=== PATIENT | male | born 1950 | race Caucasian/White ===

== ENCOUNTER 2017-04-10 12:52 | Inpatient (IN) | payer MEDICARE ==
[2017-04-10] MEDS ORDERED: LABETALOL 5 MG/ML VIAL MDV IVP STA (13:08)
--- NOTE | 2017-04-10 13:19 | ED ---
General Adult HPI - General Chief complaint: Neuro Symptoms/Deficit Stated complaint: Stroke Symptoms Time Seen by Provider: 04/10/17 13:08 Source: patient, family, RN notes reviewed Mode of arrival: wheelchair Limitations: no limitations - History of Present Illness Initial comments: 66-year-old male with no past medical history presents for evaluation of left leg left arm weakness. Patient is coming by his states that several weeks ago he had some weakness in his left leg that resolved. Last night at approximately 10 PM patient stood from a seated position and had significant weakness in his leg. He did not seek medical evaluation at that time. This morning at approximately 5 AM the patient had again weakness in the left leg, and numbness in his left leg left arm and left face. No facial droop noted. Patient's did state there was a change in his speech, no sulaiman slurring but a change in tone. Patient denies headache. Denies neck pain. Denies chest pain or abdominal pain. He has no pain complaints at all. No nausea vomiting diarrhea. Patient has no known history of hypertension. - Related Data Home Medications Medication Instructions Recorded Confirmed Aspirin EC [Ecotrin] 650 mg PO ONCE PRN 04/10/17 04/10/17 Allergies Allergy/AdvReac Type Severity Reaction Status Date / Time Yeast Allergy Unknown Verified 04/10/17 14:08 Review of Systems ROS Statement: Those systems with pertinent positive or pertinent negative responses have been documented in the HPI. ROS Other: All systems not noted in ROS Statement are negative. Past Medical History Past Medical History: No Reported History History of Any Multi-Drug Resistant Organisms: None Reported Past Surgical History: No Surgical Hx Reported Past Psychological History: No Psychological Hx Reported Smoking Status: Former smoker Past Alcohol Use History: None Reported Past Drug Use History: None Reported General Exam Limitations: no limitations General appearance: alert, in no apparent distress Head exam: Present: atraumatic, normocephalic Eye exam: Present: normal appearance, PERRL, EOMI ENT exam: Present: normal exam Neck exam: Present: normal inspection. Absent: tenderness, meningismus Respiratory exam: Present: normal lung sounds bilaterally. Absent: respiratory distress Cardiovascular Exam: Present: regular rate, normal rhythm GI/Abdominal exam: Present: soft. Absent: distended, tenderness Extremities exam: Present: normal inspection, normal capillary refill, other ( Drift in left upper and left lower extremity). Absent: pedal edema Neurological exam: Present: alert, oriented X3, CN II-XII intact, motor sensory deficit (Patient has numbness in the left upper, left lower extremity and left face. Left left arm and left leg. No facial droop) Psychiatric exam: Present: normal affect, normal mood Skin exam: Present: warm, dry, intact. Absent: cyanosis, diaphoretic Course Vital Signs 04/10/17 04/10/17 04/10/17 12:55 13:30 14:20 Temperature 98.8 F Pulse Rate 86 75 Respiratory 18 18 18 Rate Blood Pressure 257/121 207/71 190/110 O2 Sat by Pulse 98 97 Oximetry - Reevaluation(s) Reevaluation #1: 04/10/17 14:35 On reevaluation, patient's blood pressures improved 190 systolic. Patient has an unchanged neurologic examination. EKG Findings - EKG Comments: EKG Findings:: EKG shows sinus rhythm with first-degree AV block, there is T- wave inversion in V5 V6, no ST segment elevation [place] interval 2:30, QRS duration 86, QTC 439 Medical Decision Making - Medical Decision Making 66-year-old male with no significant past medical history presents for evaluation of left-sided weakness and hypertension. Patient is outside the window for TPA. His symptoms have been present for the past several weeks, they have come and gone. Most recently returned last night. Patient is not on any medication. He does not have a known history of hypertension. Initial evaluation patient is a blood pressure 260/120. He does receive IV labetalol. Head CT is obtained, and negative for intracranial hemorrhage or stroke. Laboratory studies including CBC, CMP, cardiac enzymes are unremarkable. EKG does show T-wave inversion in V5 and V6. Patient has no chest pain. Patient's blood pressure does improve, he requires additional 10 mg of hydralazine for goal blood pressure of 190-200 systolic 90-100 diastolic. Patient is started on Norvasc. He is given an aspirin MRSA department. He will be admitted for further stroke workup. - Lab Data Result diagrams: 04/10/17 13:12 04/10/17 13:12 Lab Results 04/10/17 04/10/17 04/10/17 Range/Units 13:12 13:12 13:12 WBC 8.6 (3.8-10.6) k/uL RBC 5.17 (4.30-5.90) m/uL Hgb 16.4 (13.0-17.5) gm/dL Hct 48.4 (39.0-53.0) % MCV 93.6 (80.0-100.0) fL MCH 31.6 (25.0-35.0) pg MCHC 33.8 (31.0-37.0) g/dL RDW 13.3 (11.5-15.5) % Plt Count 246 (150-450) k/uL Neutrophils % 73 % Lymphocytes % 18 % Monocytes % 5 % Eosinophils % 2 % Basophils % 1 % Neutrophils # 6.3 (1.3-7.7) k/uL Lymphocytes # 1.6 (1.0-4.8) k/uL Monocytes # 0.4 (0-1.0) k/uL Eosinophils # 0.1 (0-0.7) k/uL Basophils # 0.1 (0-0.2) k/uL PT (9.0-12.0) sec INR (<1.2) APTT (22.0-30.0) sec Sodium 142 (137-145) mmol/L Potassium 4.4 (3.5-5.1) mmol/L Chloride 108 H (98-107) mmol/L Carbon Dioxide 19 L (22-30) mmol/L Anion Gap 15 mmol/L BUN 15 (9-20) mg/dL Creatinine 0.91 (0.66-1.25) mg/dL Est GFR (MDRD) Af Amer >60 (>60 ml/min/1.73 sqM) Est GFR (MDRD) Non-Af >60 (>60 ml/min/1.73 sqM) Glucose 113 H (74-99) mg/dL Calcium 9.6 (8.4-10.2) mg/dL Total Bilirubin 0.7 (0.2-1.3) mg/dL AST 31 (17-59) U/L ALT 51 (21-72) U/L Alkaline Phosphatase 68 (38-126) U/L Total Creatine Kinase 253 H (55-170) U/L CK-MB (CK-2) 4.2 H* (0.0-2.4) ng/mL CK-MB (CK-2) Rel Index 1.7 Troponin I <0.012 (0.000-0.034) ng/mL Total Protein 8.3 H (6.3-8.2) g/dL Albumin 4.7 (3.5-5.0) g/dL 04/10/17 Range/Units 13:12 WBC (3.8-10.6) k/uL RBC (4.30-5.90) m/uL Hgb (13.0-17.5) gm/dL Hct (39.0-53.0) % MCV (80.0-100.0) fL MCH (25.0-35.0) pg MCHC (31.0-37.0) g/dL RDW (11.5-15.5) % Plt Count (150-450) k/uL Neutrophils % % Lymphocytes % % Monocytes % % Eosinophils % % Basophils % % Neutrophils # (1.3-7.7) k/uL Lymphocytes # (1.0-4.8) k/uL Monocytes # (0-1.0) k/uL Eosinophils # (0-0.7) k/uL Basophils # (0-0.2) k/uL PT 10.2 (9.0-12.0) sec INR 1.0 (<1.2) APTT 21.9 L (22.0-30.0) sec Sodium (137-145) mmol/L Potassium (3.5-5.1) mmol/L Chloride (98-107) mmol/L Carbon Dioxide (22-30) mmol/L Anion Gap mmol/L BUN (9-20) mg/dL Creatinine (0.66-1.25) mg/dL Est GFR (MDRD) Af Amer (>60 ml/min/1.73 sqM) Est GFR (MDRD) Non-Af (>60 ml/min/1.73 sqM) Glucose (74-99) mg/dL Calcium (8.4-10.2) mg/dL Total Bilirubin (0.2-1.3) mg/dL AST (17-59) U/L ALT (21-72) U/L Alkaline Phosphatase (38-126) U/L Total Creatine Kinase (55-170) U/L CK-MB (CK-2) (0.0-2.4) ng/mL CK-MB (CK-2) Rel Index Troponin I (0.000-0.034) ng/mL Total Protein (6.3-8.2) g/dL Albumin (3.5-5.0) g/dL Critical Care Time Critical Care Time: Yes Total Critical Care Time: 35 Disposition Clinical Impression: Cerebrovascular accident Disposition: ADMITTED IP TO THIS [facility] Condition: Stable Referrals: None,Stated [Primary Care Provider] - 1-2 days Decision to Admit Reason: Admit from EC Decision Date: 04/10/17 Decision Time: 14:39
[2017-04-10 13:23] LABS: Basophils # (A) 0.1 k/uL (0-0.2); Basophils % (A) 1 %; CH 30.9; CHCM 33.2; Eosinophils # (A) 0.1 k/uL (0-0.7); Eosinophils % (A) 2 %; HCT 48.4 % (39.0-53.0); HDW 2.64; HGB 16.4 gm/dL (13.0-17.5); Luc # (Auto) 0.13; Luc % (Auto) 2; Lymphocytes # (A) 1.6 k/uL (1.0-4.8); Lymphocytes % (A) 18 %; MCH 31.6 pg (25.0-35.0); MCHC 33.8 g/dL (31.0-37.0); MCV 93.6 fL (80.0-100.0); Mean Platelet Volume 7.2; Monocytes # (A) 0.4 k/uL (0-1.0); Monocytes % (A) 5 %; Neutrophils # (A) 6.3 k/uL (1.3-7.7); Neutrophils % (A) 73 %; RBC 5.17 m/uL (4.30-5.90); RDW 13.3 % (11.5-15.5); WBC 8.6 k/uL (3.8-10.6)
[2017-04-10 13:31] LABS: ALT 51 U/L (21-72); AST 31 U/L (17-59); Alkaline Phosphatase 68 U/L (38-126); Anion Gap 15 mmol/L; Blood Urea Nitrogen 15 mg/dL (9-20); Calcium 9.6 mg/dL (8.4-10.2); Carbon Dioxide 19 mmol/L (22-30); Chloride 108 mmol/L (98-107); Glucose 113 mg/dL (74-99); Non-African American GFR(MDRD) >60 (>60 ml/min/1.73 sqM); Potassium 4.4 mmol/L (3.5-5.1); Sodium 142 mmol/L (137-145); Total Bilirubin 0.7 mg/dL (0.2-1.3); Total Protein 8.3 g/dL (6.3-8.2)
[2017-04-10 13:38] LABS: Partial Thromboplastin Time 21.9 sec (22.0-30.0); Prothrombin Time 10.2 sec (9.0-12.0)
[2017-04-10 13:47] LABS: Creatine Kinase 253 U/L (55-170)
[2017-04-10 13:59] LABS: Troponin I <0.012 ng/mL (0.000-0.034)
[2017-04-10 14:01] LABS: Creatine Kinase MB 4.2 ng/mL (0.0-2.4)
--- NOTE | 2017-04-10 14:08 | XR ---
EXAMINATION TYPE: XR chest 2V DATE OF EXAM: 04/10/2017 HISTORY: altered mental status. REFERENCE: NONE. FINDINGS: Lung volumes are mildly prominent. The heart is mildly enlarged. The lungs are clear. Pleur al spaces are clear. IMPRESSION: 1. MILD CARDIOMEGALY. 2. CORRELATE FOR COPD.
--- NOTE | 2017-04-10 14:08 | CT ---
EXAMINATION TYPE: CT brain wo con for TPA DATE OF EXAM: 04/10/2017 COMPARISON: NONE HISTORY: Left sided body weakness and facial numbness CT DLP: 1260 mGycm Automated exposure control for dose reduction was used. FINDINGS: There are mild, generalized changes of sulcal prominence and ventricular megaly, compatible with atro phic change. There is diffuse periventricular white matter lucency, compatible with chronic white mat ter ischemic change. There is no acute focal lesion, mass effect or midline shift identified. I do no t see evidence of intracranial blood. The orbits appear normal. Visualized portions of the paranasal sinuses and mastoids are clear. No depressed skull fracture is s een. IMPRESSION: 1. NO ACUTE INTRACRANIAL ABNORMALITY. 2. MILD DEGENERATIVE CHANGE.
[2017-04-10] MEDS ORDERED: amLODIPine 5 MG TAB PO STA (14:34)
[2017-04-10] MEDS ORDERED: hydrALAZINE HCL 20 MG/ML 1 ML VIAL IVP STA (14:34)
[2017-04-10] MEDS ORDERED: ASPIRIN 325 MG TAB PO STA (14:39)
[2017-04-10] MEDS ORDERED: SODIUM CHLORIDE 0.9% 1,000 ML IV ONE (15:32)
[2017-04-10] MEDS: SODIUM CHLORIDE 0.9% 1,000 ML IV SCH (15:56)
[2017-04-10 17:44] LABS: Appearance,Urine Clear (Clear); Bilirubin,Urine Negative (Negative); Glucose,Urine (UA) Negative (Negative); Ketones,Urine Negative (Negative); Leukocyte Esterase,Urine Negative (Negative); Nitrite,Urine Negative (Negative); Protein,Urine Negative (Negative); Specific Gravity,Urine 1.014 (1.001-1.035); UA Billing (MACRO vs. MICRO) CHEM; Urobilinogen,Urine <2.0 mg/dL (<2.0)
[2017-04-10 18:33] VITALS: BMI 35.6
[2017-04-10] MEDS: HEPARIN SODIUM,PORCINE 5,000 UNIT/ML 1 ML VIAL SQ SCH (20:50)
[2017-04-11] MEDS ORDERED: ACETAMINOPHEN TAB 325 MG TAB PO PRN (00:11)
[2017-04-11] MEDS: SODIUM CHLORIDE 0.9% 1,000 ML IV SCH ×2 (03:23→08:32)
--- NOTE | 2017-04-11 06:14 | P.CNNES ---
History of Present Illness Consult date: 04/10/17 Reason for Consult: Patient being evaluated for acute left-sided weakness and acute stroke. 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 Tuesday night the patient noticed that he was having difficulty with the symptoms of left-sided weakness involving the arm and leg. Apparently when he was using his hand he just had no control with the hand making it hard to hold things with his left hand. He was also noticing when he was walking that he has a limp on his left side. The patient lives in [place] near [place] and apparently has been onto her at various churches. He decided to go to spiritism this morning as scheduled. He was able to complete his sermon and apparently his noticed that he was having greater difficulty with his left side. He did not manifest any evidence of aphasia. Most of his symptoms involved the use of his left hand with weakness and dysmetria. The patient states he has not been to a physician in over 20 years. He states he has been in fairly good health all these years and is the first hospitalization for him for very specific treatment. Patient denies any previous history of TIA or stroke. His who accompanies him today states that he was having difficulty holding things with his left hand. He was hobbling at spiritism according to the . He was able to stand for at least an hour to finish his sermon. She did notice earlier today that he also seemed to have left facial droop. For these reasons he was brought into the emergency room for further evaluation. He was seen in the ER by Dr. Paiz who evaluated him for possibility of acute stroke. He was sent for a computed tomography scan of the brain as well as a CTA of the brain and neck. CAT scan of the brain was negative for any evidence of acute stroke or hemorrhage. He did have evidence of hypertensive urgency in the ER with blood pressure readings of 250/120. He was given IV labetalol. He was outside of the window for TPA as his symptoms started Tuesday night at about 10 PM. He did undergo an EKG in the emergency room which did show T-wave inversion in V5 and V6. He complained of no chest pain. Patient was started on Norvasc and admitted to the hospital. According to the who provided the medical history he has been in good health all these years but is noted has not seen a physician for over 20 years. The patient was examined on [facility] care floor this evening. His speech is clear with no evidence of any aphasia. He does have evidence of left-sided hemiparesis with some dysmetria with finger-nose testing with the left hand. We have recommended a complete stroke evaluation for the patient. His overall prognosis at this time remains guarded. The patient is now admitted and neurology has been consulted for further evaluation and recommendations. Review of Systems Constitutional: Denies chills, Denies fever Eyes: denies blurred vision, denies pain Ears, nose, mouth and throat: Denies headache, Denies sore throat Cardiovascular: Denies chest pain, Denies shortness of breath Respiratory: Denies cough Gastrointestinal: Denies abdominal pain, Denies diarrhea, Denies nausea, Denies vomiting Musculoskeletal: Denies myalgias Integumentary: Denies pruritus, Denies rash Neurological: Reports balance difficulties, Reports confusion, Reports gait dysfunction, Reports lack of coordination, Reports motor disturbance, Reports paresthesias, Reports sensory deficit, Denies numbness, Denies weakness Psychiatric: Denies anxiety, Denies depression Endocrine: Denies fatigue, Denies weight change Past Medical History Past Medical History: No Reported History History of Any Multi-Drug Resistant Organisms: None Reported Past Surgical History: No Surgical Hx Reported Past Psychological History: No Psychological Hx Reported Smoking Status: Former smoker Past Alcohol Use History: None Reported Past Drug Use History: None Reported - Past Family History Father Family Medical History: CVA/TIA, Hypertension, Myocardial Infarction (NH) Mother Family Medical History: Myocardial Infarction (NH) Medications and Allergies Home Medications Medication Instructions Recorded Confirmed Type Aspirin EC [Ecotrin] 650 mg PO ONCE PRN 04/10/17 04/10/17 History Allergies Allergy/AdvReac Type Severity Reaction Status Date / Time Yeast Allergy Unknown Verified 04/10/17 14:08 Physical Examination - Vital Signs Vital Signs: Vital Signs Temp Pulse Pulse Resp BP BP Pulse Ox 04/10/17 20:00 97.1 F L 96 16 188/87 93 L 04/10/17 18:45 97 04/10/17 18:27 94 17 190/89 93 L 04/10/17 17:39 98.2 F 91 18 201/93 98 04/10/17 16:39 98 20 185/81 98 04/10/17 16:00 76 18 135/60 04/10/17 15:39 128/58 04/10/17 15:00 73 18 209/94 04/10/17 14:20 18 190/110 04/10/17 13:30 75 18 207/71 97 04/10/17 12:55 98.8 F 86 18 257/121 98 Intake and Output 04/10/17 04/10/17 04/10/17 06:59 14:59 22:59 Intake Total 100 Balance 100 Intake: Intake, IV Titration 100 Amount Sodium Chloride 0.9% 1, 100 000 ml @ 100 mls/hr IV . Q10H [facility] Rx#:[id number] Other: Voiding Method Toilet # Voids 1 Weight 112.491 kg 112.49 kg Patient Weight 04/11/17 06:59 Weight 112.49 kg - Constitutional General appearance: average body habitus, cooperative - EENT EENT: PERRL, mucous membranes moist - Respiratory Respiratory: lungs clear, normal breath sounds - Cardiovascular Cardiovascular: regular rate, normal S1, normal S2 Extremities: no peripheral edema bilaterally - Gastrointestinal Gastrointestinal: normoactive bowel sounds - Integumentary Integumentary: normal - Neurologic Cranial nerve examination: PERRL, EOMI, VFF, V1/V2/V3 grossly intact, tongue midline, intact gag reflex, intact corneal reflex, facial droop (Patient has a left upper motor neuron facial weakness.), normal palatal elevation Speech examination: intact Sensorimotor examination: intact Motor examination - right side: 5/5: biceps, triceps, wrist flexion, wrist extension, toy maker, hip flexors, knee extensors, dorsiflexion, toe extension (EHL) , plantarflexion Motor examination - left side: 3/5: biceps, triceps, wrist flexion, wrist extension, toy maker, hip flexors, knee extensors, dorsiflexion, toe extension (EHL) , plantarflexion Detailed sensory examination: intact Reflex and gait examination: intact Reflexes: 1+: ankle, bicep, knee, tricep Cerebellar examination: ataxia, dysmetria - Musculoskeletal Musculoskeletal: no pain - Psychiatric Psychiatric: mood/affect appropriate, cooperative Results - Laboratory Findings CBC and BMP: 04/10/17 13:12 04/10/17 13:12 Abnormal Lab Findings: Abnormal Labs 04/10/17 04/10/17 04/10/17 13:12 13:12 13:12 APTT 21.9 L Chloride 108 H Carbon Dioxide 19 L Glucose 113 H Total Creatine Kinase 253 H CK-MB (CK-2) 4.2 H* Total Protein 8.3 H Assessment and Plan (1) Acute right arterial ischemic stroke, MCA (middle cerebral artery) Status: Acute Code(s): I63.511 - CEREB INFRC D/T UNSP OCCLS OR STENOS OF RIGHT MID CEREB ART (2) Thrombotic stroke involving right cerebellar artery Status: Acute Code(s): I63.341 - CEREBRAL INFRC DUE TO THROMBOSIS OF RIGHT CEREBLR ARTERY (3) Hypertensive urgency Status: Acute Code(s): I16.0 - HYPERTENSIVE URGENCY (4) First degree AV block Status: Acute Code(s): I44.0 - ATRIOVENTRICULAR BLOCK, FIRST DEGREE Plan: This patient is a 66-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 Patient lives in the [facility] and has been in [place] for the past 1 month doing [employer] work. He has been to spiritism is throughout the [facility]. Patient on Tuesday night developed sudden onset of left-sided weakness involving his arm and leg. 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 He was able to complete his sermon earlier today but then his convinced him to come to the emergency room for further evaluation. Patient was seen in the ER by Dr. Paiz and he was sent for computed tomography scan and CTA angiogram of the head and neck. CT of the brain was negative for acute stroke or hemorrhage. CTA was also negative for any evidence of vascular occlusion. Patient was not a candidate for TPA as his symptoms started yesterday evening at 10 PM. He was admitted to the hospital for a complete stroke evaluation. Neurological examination reveals evidence of left-sided weakness suggesting acute right MCA stroke. He also shows evidence of dysmetria on finger-nose testing using the left arm. We would also include in the differential diagnosis possibility of cerebellar stroke. Patient will be placed on aspirin daily for secondary stroke prevention. We have recommended a complete stroke evaluation including MRI of the brain to be done tomorrow morning. He will require close monitoring of his blood pressure. His overall prognosis at this time remains guarded. We will continue close neurological follow this patient during this admission. Time with Patient: Greater than 30
[2017-04-11 06:28] LABS: Basophils % (A) 0 %; CH 30.9; CHCM 32.5; Eosinophils # (A) 0.1 k/uL (0-0.7); Eosinophils % (A) 1 %; HCT 48.2 % (39.0-53.0); HDW 2.58; HGB 15.2 gm/dL (13.0-17.5); Luc # (Auto) 0.13; Luc % (Auto) 2; Lymphocytes # (A) 1.8 k/uL (1.0-4.8); Lymphocytes % (A) 21 %; MCH 30.1 pg (25.0-35.0); MCHC 31.4 g/dL (31.0-37.0); MCV 95.6 fL (80.0-100.0); Mean Platelet Volume 6.9; Monocytes # (A) 0.5 k/uL (0-1.0); Monocytes % (A) 6 %; Neutrophils # (A) 5.9 k/uL (1.3-7.7); Neutrophils % (A) 70 %; RBC 5.04 m/uL (4.30-5.90); RDW 13.7 % (11.5-15.5); WBC 8.4 k/uL (3.8-10.6); WBC (Perox) 8.58
[2017-04-11] MEDS: PANTOPRAZOLE 40 MG TABLET PO SCH (06:38)
[2017-04-11 06:52] LABS: Calcium 8.9 mg/dL (8.4-10.2); Chloride 107 mmol/L (98-107); Cholesterol 239 mg/dL (<200); HDL Cholesterol 41 mg/dL (40-60); Potassium 4.4 mmol/L (3.5-5.1); Sodium 138 mmol/L (137-145)
[2017-04-11 07:21] LABS: Anion Gap 10 mmol/L; Blood Urea Nitrogen 12 mg/dL (9-20); Carbon Dioxide 21 mmol/L (22-30); Creatine Kinase 221 U/L (55-170); Glucose 106 mg/dL (74-99); Non-African American GFR(MDRD) >60 (>60 ml/min/1.73 sqM)
[2017-04-11] MEDS: ASPIRIN 325 MG TAB PO SCH (08:32)
[2017-04-11] MEDS: ATORVASTATIN 40 MG TAB PO SCH (08:32)
[2017-04-11] MEDS: HEPARIN SODIUM,PORCINE 5,000 UNIT/ML 1 ML VIAL SQ SCH ×2 (08:32→20:29)
[2017-04-11] MEDS ORDERED: amLODIPine 5 MG TAB PO SCH (09:00)
--- NOTE | 2017-04-11 09:15 | HP ---
HISTORY AND PHYSICAL DATE OF SERVICE: 04/10/2017. CHIEF COMPLAINT: Weakness of the left side of the body and difficulty in walking. HISTORY OF PRESENT ILLNESS: This 66-year-old gentleman with a past medical history of no medical problems except for previous smoking, being followed by no primary care physician in the outpatient setting, was noted to have weakness of the left arm with some numbness yesterday evening. The patient also noted some weakness of the left leg several weeks ago,which subsided. Last night progressively the weakness worsened and also involved the left upper limb. By 5 a.m. this morning the patient developed weakness in the left upper extremity. Accordingly, the patient came to [facility] and was admitted for evaluation and treatment. Initial CT scan did not show any acute abnormality. The patient's blood pressure was elevated up to 257 on admission but after getting medications the patient developed hypotension as well. Patient responded to bolus fluids. The patient was admitted for further evaluation and treatment. There is no history of fever. No history of headache, loss conscious, seizures. PAST MEDICAL HISTORY: No significant cardiovascular illness. MEDICATIONS: Aspirin 650 once. ALLERGIES: Yeast. FAMILY HISTORY: History of CVA and TIA in multiple members, hypertension, myocardial infarction. SOCIAL HISTORY: Previous history of smoking. No alcohol intake. REVIEW OF SYSTEMS: ENT: No diminished hearing or vision. CARDIOVASCULAR: No angina. RESPIRATORY: No cough or hemoptysis. GI: No nausea or vomiting. : No dysuria. NERVOUS SYSTEM: As mentioned earlier. ALLERGIES: No allergies or hayfever. MUSCULOSKELETAL: As mentioned earlier. HEMATOLOGY/ONCOLOGY: No anemia. ENDOCRINE: No history of diabetes or hypothyroidism. CONSTITUTIONAL: None. DERMATOLOGY: None. PSYCHIATRY: As mentioned. PHYSICAL EXAMINATION: Alert oriented x3. Pulse is 96, blood pressure 188/87, heart rate 16, temperature 97.9, pulse ox 98% room air. HEENT: Conjunctivae normal. Oral mucosa moist. NECK: No jugular venous distention. No thyroid enlargement. CARDIOVASCULAR: S1 and S2. LUNGS: Breath sounds diminished in the bases. No rhonchi. No crackles. ABDOMEN: Soft, nontender. No mass palpable. LEGS: No edema. No swelling. NERVOUS SYSTEM: Higher functions as mentioned. Cranial nerves 2 through 12 grossly intact. No nystagmus or diplopia. Otherwise minimal weakness of the left upper and lower limbs noted and also significant incoordination of the left upper limb and left lower limb also noted. Gait is ataxic. Skin no ulcer. LYMPHATICS: No lymph nodes palpable. JOINTS: No active deformity or arthropathy. LABS: CBC within normal limits. APTT 21.9. CO2 is 19. Glucose 113. Creatinine kinase 253. Total protein is 8.3. UA is unremarkable. ASSESSMENT: 1. Acute left-sided stroke. Rule out cerebellar stroke or posterior circulation stroke as well. 2. Hypertension and hypertensive urgency. 3. Remote history of nicotine dependence. 4. Increased random blood sugar. 5. Increased creatine kinase. RECOMMENDATIONS AND DISCUSSION: In this 66-year-old gentleman who presented with multiple complex medical conditions, we will monitor the patient closely. Continue the current management. We will initiate aspirin. Norvasc has been initiated. I would recommend permissive hypertension. Because of the concerns of stroke, Neurology will be consulted. Proton pump inhibitors and DVT prophylaxis. Full neurovascular work up including carotid Doppler and 2D echo. Also recommend MRI with contrast also to rule out the possibility of posterior circulation stroke as well. Lipid panel will be checked. Prognosis is guarded, which I discussed at length with the patient and family understands and agrees. Further recommendations to follow. I would also recommend the patient to follow up closely with primary physician in the outpatient setting. The patient understands and agrees. Once again, the prognosis is extremely guarded because of the multiple complex medical issues detailed above. MMODL / IJN: [id number] /
--- NOTE | 2017-04-11 10:29 | US ---
EXAMINATION TYPE: US carotid duplex BILAT DATE OF EXAM: 04/11/2017 COMPARISON: NONE CLINICAL HISTORY: Stenosis. Stenosis EXAM MEASUREMENTS: RIGHT: Peak Systolic Velocity (PSV) cm/sec ----- Right CCA: 109.4 ----- Right ICA: 140.0 ----- Right ECA: 220.4 ICA/CCA ratio: 1.3 RIGHT: End Diastole cm/sec ----- Right CCA: 18.4 ----- Right ICA: 38.2 ----- Right ECA: 0.0 LEFT: Peak Systolic Velocity (PSV) cm/sec ----- Left CCA: 125.4 ----- Left ICA: 156.9 ----- Left ECA: 154.0 ICA/CCA ratio: 1.3 LEFT: End Diastole cm/sec ----- Left CCA: 18.9 ----- Left ICA: 24.8 ----- Left ECA: 9.6 VERTEBRALS (direction of flow): Right Vertebral: Antegrade Left Vertebral: Antegrade Rhythm: Normal Bilateral intimal thickening, plaque bilateral bulb and CCA, elevated velocities: right mid ICA, righ t distal ICA, right mid ECA, left bulb and left mid ECA, no significant stenosis. IMPRESSION: 1. intimal thickening in bilateral plaque formation with no significant hemodynamic stenosis.
--- NOTE | 2017-04-11 11:00 | MR ---
"EXAMINATION TYPE: MR brain wo con DATE OF EXAM: 04/11/2017 COMPARISON: CT brain 04/10/2017 HISTORY: CVA T1-weighted sagittal, T2, FLAIR, and diffusion axial, and T2 coronal coronal views of the brain are s ubmitted. There is abnormal signal on diffusion imaging within the right thalamus measuring 1.2 cm compatible w ith acute ischemia. No midline shift. Exam somewhat limited by motion artifact. Changes of chronic si nusitis noted. Numerous areas of abnormal signal seen scattered throughout the white matter bilateral ly which are nonspecific but most typical remote microvascular ischemia. [id number] generalized degenerative change. Craniocervical junction maintained. Sella turcica has a normal appearance. No cerebellopontine angle mass. IMPRESSION: 1. Area of acute ischemia measuring 1.2 cm within the right thalamus with no midline shift. Report ca lled to the patient's nurse. A Red message has been communicated to Dhaval Gonzalez via the [employer] | Critical Result system o n 04/11/2017 10:56 AM, Message ID [id number]."
--- NOTE | 2017-04-11 14:47 | P.CRDCN ---
History of Present Illness Consult date: 04/11/17 Requesting physician: Dhaval Gonzalez Reason for Consult (text): hypertension Chief complaint: left sided weakness History of present illness: This is a pleasant 66-year-old gentleman who is visiting here from [facility], has no past medical history however has not been seen by a physician in over 30 years. Likely has a history of untreated hypertension as he had his blood pressure checked at one point many years ago and it was quite high however he never saw sought medical attention. He presented to the emergency department after having recurrent episodes of left-sided weakness and numbness. Upon arrival to the emergency department, his blood pressure was elevated at 257/121. CT of the brain showed no acute intracranial abnormality and mild degenerative change. Chest x-ray showed mild cardiomegaly and correlate for COPD. Neurology has been consulted on this patient. Patient underwent carotid Doppler study and an MRI of the brain. Carotid Doppler showed intimal thickening in bilateral plaque formation with no significant hemodynamic stenosis. MRI of the brain showed area of acute ischemia measuring 1.2 cm within the right thalamus with no midline shift. Echocardiogram is pending. Cardiology was asked to see the patient in consultation due to hypertension. Patient's blood pressure spiked up to 215/100. He is currently on Norvasc 5 mg by mouth daily. Upon examination, patient is resting comfortably in bed with family at the bedside. He has no shortness of breath, chest discomfort, dizziness or headache. His left-sided numbness has resolved and he has minimal residual left-sided weakness. Past Medical History Past Medical History: No Reported History History of Any Multi-Drug Resistant Organisms: None Reported Past Surgical History: No Surgical Hx Reported Past Psychological History: No Psychological Hx Reported Smoking Status: Former smoker Past Alcohol Use History: None Reported Past Drug Use History: None Reported - Past Family History Father Family Medical History: CVA/TIA, Hypertension, Myocardial Infarction ([place]) Mother Family Medical History: Myocardial Infarction ([place]) Medications and Allergies Home Medications Medication Instructions Recorded Confirmed Type Aspirin EC [Ecotrin] 650 mg PO ONCE PRN 04/10/17 04/10/17 History Allergies Allergy/AdvReac Type Severity Reaction Status Date / Time Yeast Allergy Unknown Verified 04/10/17 14:08 Physical Exam Vitals: Vital Signs Temp Pulse Pulse Resp BP BP Pulse Ox 04/11/17 14:15 191/87 04/11/17 13:39 88 04/11/17 12:00 96 230/104 96 04/11/17 11:39 90 04/11/17 09:39 88 04/11/17 08:00 97.9 F 83 215/98 94 L 04/11/17 07:39 81 04/11/17 07:09 97 04/11/17 04:00 97.5 F L 87 17 182/85 94 L 04/11/17 00:00 97.9 F 86 16 188/88 92 L 04/10/17 20:00 97.1 F L 96 16 188/87 93 L 04/10/17 18:45 97 04/10/17 18:27 94 17 190/89 93 L 04/10/17 17:39 98.2 F 91 18 201/93 98 04/10/17 16:39 98 20 185/81 98 04/10/17 16:00 76 18 135/60 04/10/17 15:39 128/58 04/10/17 15:00 73 18 209/94 Intake and Output 04/10/17 04/11/17 04/11/17 22:59 06:59 14:59 Intake Total 100 1000 840 Balance 100 1000 840 Intake: IV 1000 Sodium Chloride 0.9% 1, 1000 000 ml @ 100 mls/hr IV . Q10H ED Rx#:[id number] Intake, IV Titration 100 600 Amount Sodium Chloride 0.9% 1, 100 600 000 ml @ 100 mls/hr IV . Q10H ED Rx#:[id number] Oral 240 Other: Voiding Method Toilet Toilet # Voids 1 3 Weight 112.49 kg 110.5 kg PHYSICAL EXAMINATION: HEENT: Head is atraumatic, normocephalic. Pupils equal, round. Neck is supple. There is no elevated jugular venous pressure. HEART EXAMINATION: Heart sounds regular, S1 and S2 normal with a soft systolic murmur. CHEST EXAMINATION: Lungs are clear to auscultation and precussion. No chest wall tenderness is noted on palpation or with deep breathing. ABDOMEN: Soft, nontender. Bowel sounds are heard. No organomegaly noted. EXTREMITIES: 2+ peripheral pulses with no evidence of peripheral edema and no calf tenderness noted. Minimal left-sided weakness noted. NEUROLOGIC patient is awake, alert and oriented x3. . Results 04/11/17 06:06 04/11/17 06:02 Lipids 04/11/17 Range/Units 06:02 Triglycerides 135 (<150) mg/dL Cholesterol 239 H (<200) mg/dL HDL Cholesterol 41 (40-60) mg/dL CBC 04/11/17 Range/Units 06:06 WBC 8.4 (3.8-10.6) k/uL RBC 5.04 (4.30-5.90) m/uL Hgb 15.2 (13.0-17.5) gm/dL Hct 48.2 (39.0-53.0) % Plt Count 228 (150-450) k/uL Comprehensive Metabolic Panel 04/11/17 Range/Units 06:02 Sodium 138 (137-145) mmol/L Potassium 4.4 (3.5-5.1) mmol/L Chloride 107 (98-107) mmol/L Carbon Dioxide 21 L (22-30) mmol/L BUN 12 (9-20) mg/dL Creatinine 0.78 (0.66-1.25) mg/dL Glucose 106 H (74-99) mg/dL Calcium 8.9 (8.4-10.2) mg/dL Current Medications Generic Name Dose Route Start Last Admin Trade Name Freq PRN Reason Stop Dose Admin Acetaminophen 650 mg 04/11/17 00:11 Tylenol Tab PO Q6HR PRN Fever and/ or Pain Amlodipine Besylate 5 mg 04/11/17 09:00 04/11/17 08:32 Norvasc PO 5 mg DAILY ED Administration Aspirin 325 mg 04/11/17 09:00 04/11/17 08:32 Aspirin PO 325 mg DAILY ED Administration Atorvastatin Calcium 40 mg 04/11/17 09:00 04/11/17 08:32 Lipitor PO Not Given DAILY ED Heparin Sodium (Porcine) 5,000 unit 04/10/17 21:00 04/11/17 08:32 Heparin SQ 5,000 unit Q12HR ED Administration Sodium Chloride 1,000 mls @ 100 mls/hr 04/10/17 14:45 04/11/17 08:32 Saline 0.9% IV 100 mls/hr .Q10H ED Administration Pantoprazole Sodium 40 mg 04/11/17 07:30 04/11/17 06:38 Protonix PO Not Given AC-BRKFST ED Intake and Output 04/10/17 04/11/17 04/11/17 22:59 06:59 14:59 Intake Total 100 1000 840 Balance 100 1000 840 Intake: IV 1000 Sodium Chloride 0.9% 1, 1000 000 ml @ 100 mls/hr IV . Q10H ED Rx#:[id number] Intake, IV Titration 100 600 Amount Sodium Chloride 0.9% 1, 100 600 000 ml @ 100 mls/hr IV . 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 We'll add a beta stephanie to the patient's medications. We'll check a TSH. Further recommendations to follow. FILM DEVELOPER note has been reviewed, I agree with a documented findings and plan of care. Patient was seen and examined.
[2017-04-11] MEDS: CARVEDILOL 3.125 MG TAB PO SCH ×2 (16:01→16:02)
--- NOTE | 2017-04-11 17:43 | P.PN ---
Subjective Date of service 04/11/2017 Progress note being dictated for Dr. Gonzalez. Interval history: This a 66-year-old gentleman admitted with acute left sided CVA, hypertensive urgency and multiple other medical issues. Evaluated by neurology with neuro workup in progress. Norvasc added to med regime yesterday , remains hypertensive, cardiology consulted with recommendations noted. Beta stephanie added to med regime. Echo ordered. MRI pending. CK 221, cholesterol 239, LDL 171. Denies chest pain, palpitations or increasing shortness of breath. Objective - Vital Signs Vital signs: Vital Signs Temp 97.4 F L 04/11/17 15:23 Pulse 78 04/11/17 15:23 Resp 18 04/11/17 15:23 BP 208/95 04/11/17 15:23 Pulse Ox 98 04/11/17 15:23 Intake & Output 04/10/17 04/11/17 04/11/17 18:59 06:59 18:59 Intake Total 1100 1320 Balance 1100 1320 Weight 112.49 kg 110.5 kg Intake: IV 1000 Sodium Chloride 0.9% 1, 1000 000 ml @ 100 mls/hr IV . Q10H ED Rx#:[id number] Intake, IV Titration 100 600 Amount Sodium Chloride 0.9% 1, 100 600 000 ml @ 100 mls/hr IV . Q10H ED Rx#:[id number] Oral 720 Other: Voiding Method Toilet Toilet # Voids 3 - Exam PHYSICAL EXAM: VITAL SIGNS: As above GENERAL: Sitting up in bed, no acute distress HEENT: Conjunctivae normal. eyes normal. Oral mucosa moist NECK: No JVD. No thyroid enlargement. No LNs CARDIOVASCULAR: S1, S2 muffled. No murmur RESPIRATION: Breath sounds diminished in the bases. No rhonchi or crackles. No bronchial breathing. ABDOMEN: Soft, nontender . No guarding. no masses palpable. No ascites, No hepatosplenomegaly.Bowel sounds heard. LEGS: No edema. no swelling PSYCHIATRY: Alert and oriented -3, mood and affect normal. NERVOUS SYSTEM: Cranial N 2-12 grossly normal. Moves all 4 limbs. Diffuse weakness and significant incoordination of left upper and lower extremities, No focal deficits. No sensory deficit. Skin: no ulcer no rash Joints: No active swelling. No inflammation. Lymphatic system. No LN neck axilla or groin. - Labs CBC & Chem 7: 04/11/17 06:06 04/11/17 06:02 Labs: Abnormal Lab Results - Last 24 Hours (Table) 04/11/17 Range/Units 06:02 Carbon Dioxide 21 L (22-30) mmol/L Glucose 106 H (74-99) mg/dL Creatine Kinase 221 H (55-170) U/L Cholesterol 239 H (<200) mg/dL LDL Cholesterol, Calc 171 H (0-99) mg/dL Assessment and Plan Plan: 1. Acute left-sided stroke, rule out cerebellar or posterior circulation stroke. 2. [ Hypertension and hypertensive urgency]. 3. [ Remote history of nicotine dependence]. 4. [ Increased CK]. 5. Hypercholesterolemia, Plan: Continue on current medication regime , aspirin, Norvasc, beta stephanie , monitoring and symptomatic treatment. Neuro workup in progress with MRI results pending. Follow closely with neurology and cardiology. GI prophylaxis in place. Prognosis guarded. Further recommendations to follow. The impression and plan of care has been dictated as directed. : I performed a H&P examination of this patient and discussed the same with the dictator. I agree with the dictator's note. Any additional findings/opinions/ etc. will be noted.
--- NOTE | 2017-04-11 18:29 | ECHOF ---
Referral Reason:Thrombus MEASUREMENTS -------- HEIGHT: 180.3 cm WEIGHT: 110.2 kg BP: 182/85 IVSd: 1.9 cm (0.6 - 1.1) LVIDd: 3.7 cm (3.9 - 5.3) LVPWd: 1.8 cm (0.6 - 1.1) IVSs: 2.4 cm LVIDs: 2.0 cm LVPWs: 2.4 cm Ao Diam: 3.6 cm (2.0 - 3.7) AV Cusp: 2.0 cm (1.5 - 2.6) LA Diam: 3.3 cm (2.7 - 3.8) MV EXCURSION: 11.800 mm (> 18.000) MV EF SLOPE: 30 mm/s (70 - 150) EPSS: 1.7 cm MV E Jesse: 1.14 m/s MV DecT: 145 ms MV A Jesse: 0.90 m/s MV E/A Ratio: 1.28 AR PHT: 359 ms RAP: 5.00 mmHg RVSP: 11.51 mmHg FINDINGS -------- Sinus rhythm. This was a technically good study. The left ventricular size is normal. There is severe concentric left ventricular hypertrophy. Overall left ventricular systolic function is normal with, an EF between 55 - 60 %. The right ventricle is normal in size and function. The left atrium is normal in size. The right atrium is normal in size. Aortic valve is trileaflet and is mildly thickened. Trace amount of aortic regurgitation. The mitral valve leaflets are mildly thickened. Mild mitral regurgitation is present. Mild tricuspid regurgitation present. The right ventricular systolic pressure, as measured by Doppler, is 11.51mmHg. Pulmonic valve appears structurally normal. The aortic root size is normal. There is a trivial pericardial effusion present. CONCLUSIONS -------- 1. Sinus rhythm. 2. Trace amount of aortic regurgitation. 3. The mitral valve leaflets are mildly thickened. 4. Mild mitral regurgitation is present. 5. Mild tricuspid regurgitation present. 6. The right ventricular systolic pressure, as measured by Doppler, is 11.51mmHg. 7. Pulmonic valve appears structurally normal. 8. The aortic root size is normal. 9. There is a trivial pericardial effusion present. 10. This was a technically good study. 11. The left ventricular size is normal. 12. There is severe concentric left ventricular hypertrophy. 13. Overall left ventricular systolic function is normal with, an EF between 55 - 60 %. 14. The right ventricle is normal in size and function. 15. The left atrium is normal in size. 16. The right atrium is normal in size. 17. Aortic valve is trileaflet and is mildly thickened. STUMP SHOOTER: Flora Mary RDCS
[2017-04-11] MEDS ORDERED: hydrALAZINE HCL 20 MG/ML 1 ML VIAL IVP PRN (20:48)
[2017-04-11] MEDS: amLODIPine 5 MG TAB PO SCH (21:20)
--- NOTE | 2017-04-11 23:07 | P.PN ---
Subjective This patient is a 66-year-old male who was seen yesterday on neurology consultation for evaluation of left-sided weakness and possible acute TIA versus stroke. Patient's neurological examination yesterday did reveal evidence of left hemiparesis as well as left-sided dysmetria. Patient was sent for MRI of the brain today which was reviewed. MRI reveals evidence of an acute infarct in the right thalamus measuring 1.2 cm. There was no midline shift. We reviewed the results of the MRI today with the patient. He was seen by cardiology and has been started on antihypertensive medications as well. The patient underwent MRI of the brain which was reviewed. MRI reveals evidence of a acute right thalamic stroke. We reviewed the results today with the patient and his at bedside. He is planning to return to [place] where he will recuperate is that this is home town. The patient otherwise seems to notice some improvement with the left-sided weakness. He underwent carotid Doppler ultrasound results which came back negative for any evidence of carotid stenosis. We will continue close neurological follow-up with this patient during this admission. Objective - Vital Signs Vital signs: Vital Signs Temp 97.0 F L 04/11/17 17:39 Pulse 81 04/11/17 17:39 Resp 18 04/11/17 17:39 BP 214/98 04/11/17 17:39 Pulse Ox 98 04/11/17 17:39 Intake & Output 04/11/17 04/11/17 04/12/17 06:59 18:59 06:59 Intake Total 1100 1560 Balance 1100 1560 Weight 110.5 kg Intake: IV 1000 Sodium Chloride 0.9% 1, 1000 000 ml @ 100 mls/hr IV . Q10H ED Rx#:[id number] Intake, IV Titration 100 600 Amount Sodium Chloride 0.9% 1, 100 600 000 ml @ 100 mls/hr IV . Q10H ED Rx#:[id number] Oral 960 Other: Voiding Method Toilet Toilet # Voids 3 - Exam Physical examination: PHYSICAL EXAMINATION: Patient is resting comfortably in bed. VITAL SIGNS: Blood pressure is [202/98]. Heart rate is [81]. Respiration is [18] . Temperature is [97.0]. HEENT: Head is atraumatic, neck is supple, there were no carotid bruits. CHEST: Lungs are clear to auscultation and percussion. CARDIAC: S1, S2 normal rate and rhythm. There is no murmur. ABDOMEN: Soft and nontender. Bowel sounds are present. EXTREMITIES: There is no pedal edema. Peripheral pulses are present. Neurological examination: Patient's neurological examination is unchanged from yesterday. - Labs CBC & Chem 7: 04/11/17 06:06 04/11/17 06:02 Labs: Abnormal Lab Results - Last 24 Hours (Table) 04/11/17 Range/Units 06:02 Carbon Dioxide 21 L (22-30) mmol/L Glucose 106 H (74-99) mg/dL Creatine Kinase 221 H (55-170) U/L Cholesterol 239 H (<200) mg/dL LDL Cholesterol, Calc 171 H (0-99) mg/dL Assessment and Plan (1) Acute right arterial ischemic stroke, MCA (middle cerebral artery) Status: Acute Code(s): I63.511 - CEREB INFRC D/T UNSP OCCLS OR STENOS OF RIGHT MID CEREB ART (2) Thrombotic stroke involving right cerebellar artery Status: Acute Code(s): I63.341 - CEREBRAL INFRC DUE TO THROMBOSIS OF RIGHT CEREBLR ARTERY (3) Hypertensive urgency Status: Acute Code(s): I16.0 - HYPERTENSIVE URGENCY (4) First degree AV block Status: Acute Code(s): I44.0 - ATRIOVENTRICULAR BLOCK, FIRST DEGREE Plan: This patient is a 66-year-old right-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 He has been to congregational is throughout the [facility]. Patient on Tuesday night developed sudden onset of left-sided weakness involving his arm and leg. 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 He was able to complete his sermon earlier today but then his convinced him to come to the emergency room for further evaluation. Patient was seen in the ER by Dr. Paiz and he was sent for computed tomography scan and CTA angiogram of the head and neck. CT of the brain was negative for acute stroke or hemorrhage. CTA was also negative for any evidence of vascular occlusion. Patient was not a candidate for TPA as his symptoms started yesterday evening at 10 PM. He was admitted to the hospital for a complete stroke evaluation. Neurological examination reveals evidence of left-sided weakness suggesting acute right MCA stroke. He also shows evidence of dysmetria on finger-nose testing using the left arm. We would also include in the differential diagnosis possibility of cerebellar stroke. Patient will be placed on aspirin daily for secondary stroke prevention. We have recommended a complete stroke evaluation including MRI of the brain to be done tomorrow morning. He will require close monitoring of his blood pressure. His overall prognosis at this time remains guarded. The patient is resting comfortably despite his recent stroke. He is planning to return to [place] soon after he is discharged here and we'll recuperate locally. We suggest he follow up with an principal technical specialist and neurologist there for further management of his stroke. We will continue close neurological follow this patient during this admission.
[2017-04-12] MEDS: SODIUM CHLORIDE 0.9% 1,000 ML IV SCH ×2 (01:18→06:10)
[2017-04-12 06:17] LABS: Basophils % (A) 1 %; CH 31.6; CHCM 33.6; Eosinophils # (A) 0.2 k/uL (0-0.7); Eosinophils % (A) 3 %; HCT 50.9 % (39.0-53.0); HDW 2.63; HGB 16.4 gm/dL (13.0-17.5); Luc # (Auto) 0.09; Luc % (Auto) 1; Lymphocytes # (A) 1.6 k/uL (1.0-4.8); Lymphocytes % (A) 22 %; MCH 30.4 pg (25.0-35.0); MCHC 32.2 g/dL (31.0-37.0); MCV 94.6 fL (80.0-100.0); Mean Platelet Volume 7.5; Monocytes # (A) 0.4 k/uL (0-1.0); Monocytes % (A) 5 %; Neutrophils # (A) 5.1 k/uL (1.3-7.7); Neutrophils % (A) 69 %; RBC 5.38 m/uL (4.30-5.90); RDW 14.5 % (11.5-15.5); WBC 7.4 k/uL (3.8-10.6); WBC (Perox) 7.33
[2017-04-12] MEDS: PANTOPRAZOLE 40 MG TABLET PO SCH (06:27)
[2017-04-12 06:36] LABS: Anion Gap 12 mmol/L; Blood Urea Nitrogen 13 mg/dL (9-20); Calcium 9.2 mg/dL (8.4-10.2); Carbon Dioxide 22 mmol/L (22-30); Chloride 105 mmol/L (98-107); Creatine Kinase 358 U/L (55-170); Glucose 113 mg/dL (74-99); Non-African American GFR(MDRD) >60 (>60 ml/min/1.73 sqM); Potassium 4.2 mmol/L (3.5-5.1); Sodium 139 mmol/L (137-145)
[2017-04-12] MEDS: amLODIPine 5 MG TAB PO SCH ×2 (09:07→19:50)
[2017-04-12] MEDS: ATORVASTATIN 40 MG TAB PO SCH (09:07)
[2017-04-12] MEDS: HEPARIN SODIUM,PORCINE 5,000 UNIT/ML 1 ML VIAL SQ SCH ×2 (09:08→19:45)
[2017-04-12] MEDS: ASPIRIN 325 MG TAB PO SCH (09:08)
[2017-04-12] MEDS: CARVEDILOL 3.125 MG TAB PO SCH (09:08)
--- NOTE | 2017-04-12 11:09 | P.PN ---
Subjective Principal diagnosis: Hypertension/stroke This is a pleasant 66-year-old gentleman who is visiting here from [facility], has no past medical history however has not been seen by a physician in over 30 years. Likely has a history of untreated hypertension as he had his blood pressure checked at one point many years ago and it was quite high however he never saw sought medical attention. He presented to the emergency department after having recurrent episodes of left -sided weakness and numbness. Upon arrival to the emergency department, his blood pressure was elevated at 257/121. CT of the brain showed no acute intracranial abnormality and mild degenerative change. Chest x-ray showed mild cardiomegaly and correlate for COPD. Neurology has been consulted on this patient. Patient underwent carotid Doppler study and an MRI of the brain. Carotid Doppler showed intimal thickening in bilateral plaque formation with no significant hemodynamic stenosis. MRI of the brain showed area of acute ischemia measuring 1.2 cm within the right thalamus with no midline shift. Echocardiogram showed normal LV function. Cardiology was asked to see the patient in consultation due to hypertension. Patient's blood pressure spiked up to 215/100. He is currently on Norvasc 5 mg by mouth daily. We did increase the dose of Norvasc to 10 mg and we added Coreg on him. On follow-up with him today, he continues to be asymptomatic from the cardiovascular standpoint overview. The blood pressure continues to be not well -controlled. I am going to increase the dose of Coreg and continue the current dose of Norvasc and follow-up with the patient. The echocardiogram was reviewed. Objective - Vital Signs Vital signs: Vital Signs Temp 97.6 F 04/12/17 00:00 Pulse 89 04/12/17 04:00 Resp 16 04/12/17 04:00 BP 177/86 04/12/17 06:00 Pulse Ox 99 04/12/17 04:00 Intake & Output 04/11/17 04/12/17 04/12/17 18:59 06:59 18:59 Intake Total 1560 900 180 Balance 1560 900 180 Weight 111.4 kg Intake: IV 900 Sodium Chloride 0.9% 1, 900 000 ml @ 100 mls/hr IV . Q10H ED Rx#:[id number] Intake, IV Titration 600 Amount Sodium Chloride 0.9% 1, 600 000 ml @ 100 mls/hr IV . Q10H ED Rx#:[id number] Oral 960 180 Other: Voiding Method Toilet Toilet # Voids 1 - Constitutional General appearance: Present: no acute distress - Respiratory Respiratory: bilateral: CTA - Cardiovascular Rhythm: regular Heart sounds: normal: S1, S2 - Labs CBC & Chem 7: 04/12/17 05:52 04/12/17 05:52 Labs: Abnormal Lab Results - Last 24 Hours (Table) 04/12/17 Range/Units 05:52 Glucose 113 H (74-99) mg/dL Creatine Kinase 358 H (55-170) U/L Assessment and Plan Plan: This is a pleasant 66-year-old gentleman who presented to the hospital with stroke and was found to have uncontrolled hypertension. The blood pressure continues to be not well-controlled and we are going to increase the dose of Coreg to 12.5 mg by mouth twice a day and continue the current above dose of Norvasc which is 10 mg by mouth daily. Continue following up with him.
[2017-04-12] MEDS ORDERED: TEMAZEPAM 15 MG CAP PO PRN (12:33)
[2017-04-12] MEDS ORDERED: ALPRAZolam 0.25 MG TAB PO PRN (12:33)
[2017-04-12] MEDS ORDERED: ENALAPRILAT 1.25 MG/ML 1 ML VIAL IVP PRN (12:36)
[2017-04-12] MEDS: CARVEDILOL 12.5 MG TAB PO SCH (17:28)
--- NOTE | 2017-04-12 18:05 | P.PN ---
Subjective Progress note being dictated for Dr. Gonzalez. 04/11/2017Interval history: This a 66-year-old gentleman admitted with acute left sided CVA, hypertensive urgency and multiple other medical issues. Evaluated by neurology with neuro workup in progress. Norvasc added to med regime yesterday, remains hypertensive, cardiology consulted with recommendations noted. Beta stephanie added to med regime. Echo ordered. MRI pending. CK 221, cholesterol 239, LDL 171. Denies chest pain, palpitations or increasing shortness of breath. 04/12/2017. Yesterday Norvasc dose increased with Coreg added to med regime. Remains hypertensive. Refusing to take IV antihypertensives and at times oral medications. On MRI reported acute right Thalamic stroke without midline shift. Carotid Doppler reporting no significant hemodynamic stenosis. Denies chest pain, palpitations or increasing shortness of breath. Objective - Vital Signs Vital signs: Vital Signs Temp 97.5 F L 04/12/17 08:00 Pulse 75 04/12/17 13:00 Resp 16 04/12/17 04:00 BP 184/83 04/12/17 12:00 Pulse Ox 97 04/12/17 12:00 Intake & Output 04/11/17 04/12/17 04/12/17 18:59 06:59 18:59 Intake Total 1560 900 760 Balance 1560 900 760 Weight 111.4 kg Intake: IV 900 Sodium Chloride 0.9% 1, 900 000 ml @ 100 mls/hr IV . Q10H ED Rx#:[id number] Intake, IV Titration 600 400 Amount Sodium Chloride 0.9% 1, 600 400 000 ml @ 100 mls/hr IV . Q10H ED Rx#:[id number] Oral 960 360 Other: Voiding Method Toilet Toilet # Voids 1 - Exam PHYSICAL EXAM: VITAL SIGNS: As above GENERAL: Sitting up in bed, no acute distress HEENT: Conjunctivae normal. eyes normal. Oral mucosa moist NECK: No JVD. No thyroid enlargement. No LNs CARDIOVASCULAR: S1, S2 muffled. No murmur RESPIRATION: Breath sounds diminished in the bases. No rhonchi or crackles. ABDOMEN: Soft, nontender . No guarding. no masses palpable. Bowel sounds heard. LEGS: No edema. no swelling PSYCHIATRY: Alert and oriented -3, mood and affect normal. NERVOUS SYSTEM: Cranial N 2-12 grossly normal. Moves all 4 limbs. Diffuse weakness and significant incoordination of left upper and lower extremities, No focal deficits. No sensory deficit. Skin: no ulcer no rash Joints: No active swelling. No inflammation. - Labs CBC & Chem 7: 04/12/17 05:52 04/12/17 05:52 Labs: Abnormal Lab Results - Last 24 Hours (Table) 04/12/17 Range/Units 05:52 Glucose 113 H (74-99) mg/dL Creatine Kinase 358 H (55-170) U/L Assessment and Plan Plan: 1. Acute left-sided stroke, rule out cerebellar or posterior circulation stroke. MRI reporting acute right thalamus stroke. 2. [ Hypertension and hypertensive urgency]. 3. [ Remote history of nicotine dependence]. 4. [ Increased CK]. 5. Hypercholesterolemia, Plan: Continue on current medication regime , aspirin, Norvasc, beta stephanie , monitoring and symptomatic treatment. Coreg dose increased as per cardiology Follow closely with neurology and cardiology. Prognosis guarded. Discharge planning in progress for tomorrow. The impression and plan of care has been dictated as directed. : I performed a H&P examination of this patient and discussed the same with the dictator. I agree with the dictator's note. Any additional findings/opinions/ etc. will be noted.
[2017-04-13] MEDS: PANTOPRAZOLE 40 MG TABLET PO SCH (06:00)
[2017-04-13] MEDS: CARVEDILOL 12.5 MG TAB PO SCH ×2 (06:01→18:00)
[2017-04-13] MEDS: HEPARIN SODIUM,PORCINE 5,000 UNIT/ML 1 ML VIAL SQ SCH ×2 (08:50→20:25)
[2017-04-13] MEDS: ASPIRIN 325 MG TAB PO SCH (08:50)
[2017-04-13] MEDS: amLODIPine 5 MG TAB PO SCH ×2 (08:50→20:27)
[2017-04-13] MEDS: ATORVASTATIN 40 MG TAB PO SCH (08:50)
--- NOTE | 2017-04-13 10:49 | P.PN ---
Subjective Principal diagnosis: Hypertension/stroke This is a pleasant 66-year-old gentleman who is visiting here from [facility], has no past medical history however has not been seen by a physician in over 30 years. Likely has a history of untreated hypertension as he had his blood pressure checked at one point many years ago and it was quite high however he never saw sought medical attention. He presented to the emergency department after having recurrent episodes of left -sided weakness and numbness. Upon arrival to the emergency department, his blood pressure was elevated at 257/121. CT of the brain showed no acute intracranial abnormality and mild degenerative change. Chest x-ray showed mild cardiomegaly and correlate for COPD. Neurology has been consulted on this patient. Patient underwent carotid Doppler study and an MRI of the brain. Carotid Doppler showed intimal thickening in bilateral plaque formation with no significant hemodynamic stenosis. MRI of the brain showed area of acute ischemia measuring 1.2 cm within the right thalamus with no midline shift. Echocardiogram showed normal LV function. Cardiology was asked to see the patient in consultation due to hypertension. Patient's blood pressure spiked up to 215/100. He is currently on Norvasc 5 mg by mouth daily. We did increase the dose of Norvasc to 10 mg and we added Coreg on him. On follow-up with him today, he continues to be asymptomatic from the cardiovascular standpoint overview. The blood pressure continues to be not well -controlled. I am going to increase the dose of Coreg and continue the current dose of Norvasc and follow-up with the patient. The echocardiogram was reviewed. Objective - Vital Signs Vital signs: Vital Signs Temp 97.5 F L 04/13/17 08:00 Pulse 71 04/13/17 08:00 Resp 16 04/13/17 04:00 BP 205/94 04/13/17 08:00 Pulse Ox 96 04/13/17 08:00 Intake & Output 04/12/17 04/13/17 04/13/17 18:59 06:59 18:59 Intake Total 996 20 180 Balance 996 20 180 Weight 115 kg Intake: IV 20 0.9% NS FLUSH 10 ML 20 Intake, IV Titration 400 Amount Sodium Chloride 0.9% 1, 400 000 ml @ 100 mls/hr IV . Q10H ED Rx#:[id number] Oral 596 180 - Constitutional General appearance: Present: no acute distress - Respiratory Respiratory: bilateral: CTA - Cardiovascular Rhythm: regular Heart sounds: normal: S1, S2 - Labs CBC & Chem 7: 04/12/17 05:52 04/12/17 05:52 Assessment and Plan Plan: This is a pleasant 66-year-old gentleman who presented to the hospital with stroke and was found to have uncontrolled hypertension. The blood pressure continues to be not well-controlled on the current medical regimen which include Coreg at 12.5 mg by mouth twice a day and Norvasc at 5 mg by mouth twice a day. I am going to increase the dose of Coreg to 25 mg by mouth twice a day. If the pressure continues to be not well-controlled I would consider adding diuretics or SARAH/ ARB.
[2017-04-13] MEDS ORDERED: CARVEDILOL 12.5 MG TAB PO STA (11:07)
[2017-04-13] MEDS ORDERED: cloNIDine HCL 0.1 MG TAB PO PRN (14:53)
--- NOTE | 2017-04-13 18:30 | P.PN ---
Subjective This patient is a 66-year-old male who was seen yesterday on neurology consultation for evaluation of left-sided weakness and possible acute TIA versus stroke. Patient's neurological examination yesterday did reveal evidence of left hemiparesis as well as left-sided dysmetria. Patient was sent for MRI of the brain today which was reviewed. MRI reveals evidence of an acute infarct in the right thalamus measuring 1.2 cm. There was no midline shift. We reviewed the results of the MRI today with the patient. He was seen by cardiology and has been started on antihypertensive medications as well. The patient underwent MRI of the brain which was reviewed. MRI reveals evidence of a acute right thalamic stroke. We reviewed the results today with the patient and his at bedside. He is planning to return to [place] where he will recuperate is that this is home town. The patient otherwise seems to notice some improvement with the left-sided weakness. He underwent carotid Doppler ultrasound results which came back negative for any evidence of carotid stenosis. His recent stroke as detected on MRI is very typical for hypertensive etiology. The patient's blood pressure continues to remain poorly controlled. We are waiting further recommendations from cardiology. Patient is very eager to go home as he would like to return to [place] where he is currently living. We recommend that he should make sure his blood pressure is well controlled before being discharged from the hospital in the next few days. We will continue close neurological follow-up with this patient during this admission. His overall prognosis at this time remains guarded. Objective - Vital Signs Vital signs: Vital Signs Temp 97.5 F L 04/12/17 08:00 Pulse 75 04/12/17 16:00 Resp 16 04/12/17 04:00 BP 214/100 04/12/17 16:00 Pulse Ox 97 04/12/17 16:00 Intake & Output 04/12/17 04/12/17 04/13/17 06:59 18:59 06:59 Intake Total 900 996 Balance 900 996 Weight 111.4 kg Intake: IV 900 Sodium Chloride 0.9% 1, 900 000 ml @ 100 mls/hr IV . Q10H ED Rx#:[id number] Intake, IV Titration 400 Amount Sodium Chloride 0.9% 1, 400 000 ml @ 100 mls/hr IV . Q10H ED Rx#:[id number] Oral 596 Other: Voiding Method Toilet # Voids 1 - Exam Physical examination: PHYSICAL EXAMINATION: Patient is resting comfortably in bed. VITAL SIGNS: Blood pressure is [178/83]. Heart rate is [79]. Respiration is [18] . Temperature is [97. 7]. HEENT: Head is atraumatic, neck is supple, there were no carotid bruits. CHEST: Lungs are clear to auscultation and percussion. CARDIAC: S1, S2 normal rate and rhythm. There is no murmur. ABDOMEN: Soft and nontender. Bowel sounds are present. EXTREMITIES: There is no pedal edema. Peripheral pulses are present. Neurological examination: Patient's neurological examination is unchanged from yesterday. - Labs CBC & Chem 7: 04/12/17 05:52 04/12/17 05:52 Labs: Abnormal Lab Results - Last 24 Hours (Table) 04/12/17 Range/Units 05:52 Glucose 113 H (74-99) mg/dL Creatine Kinase 358 H (55-170) U/L Assessment and Plan (1) Acute right arterial ischemic stroke, MCA (middle cerebral artery) Status: Acute Code(s): I63.511 - CEREB INFRC D/T UNSP OCCLS OR STENOS OF RIGHT MID CEREB ART (2) Thrombotic stroke involving right cerebellar artery Status: Acute Code(s): I63.341 - CEREBRAL INFRC DUE TO THROMBOSIS OF RIGHT CEREBLR ARTERY (3) Hypertensive urgency Status: Acute Code(s): I16.0 - HYPERTENSIVE URGENCY (4) First degree AV block Status: Acute Code(s): I44.0 - ATRIOVENTRICULAR BLOCK, FIRST DEGREE Plan: This patient is a 66-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 He has been to roman catholic is throughout the [facility]. Patient on Tuesday night developed sudden onset of left-sided weakness involving his arm and leg. 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 He was able to complete his sermon earlier today but then his convinced him to come to the emergency room for further evaluation. Patient was seen in the ER by Dr. Paiz and he was sent for computed tomography scan and CTA angiogram of the head and neck. CT of the brain was negative for acute stroke or hemorrhage. CTA was also negative for any evidence of vascular occlusion. Patient was not a candidate for TPA as his symptoms started yesterday evening at 10 PM. He was admitted to the hospital for a complete stroke evaluation. Neurological examination reveals evidence of left-sided weakness suggesting acute right MCA stroke. He also shows evidence of dysmetria on finger-nose testing using the left arm. We would also include in the differential diagnosis possibility of cerebellar stroke. The patient underwent MRI of the brain yesterday which was reviewed. MRI does reveal evidence of acute right thalamic stroke. This is most likely a hypertensive stroke. His blood pressures continue to remain elevated. We will await further recommendations from cardiology. He will require close monitoring of his blood pressure. His overall prognosis at this time remains guarded. The patient is resting comfortably despite his recent stroke. He is planning to return to [place] soon after he is discharged here and he will recuperate locally. We suggest he follow up with an train caller and neurologist there for further management of his stroke. Blood pressure does seem to be leveling off but still remains elevated. We will continue close neurological follow this patient during this admission. His overall prognosis at this time remains guarded.
--- NOTE | 2017-04-13 18:36 | P.PN ---
Subjective This patient is a 66-year-old male who was seen on neurology consultation for evaluation of left-sided weakness and possible acute TIA versus stroke. Patient 's neurological examination yesterday did reveal evidence of left hemiparesis as well as left-sided dysmetria. Patient was sent for MRI of the brain today which was reviewed. MRI reveals evidence of an acute infarct in the right thalamus measuring 1.2 cm. There was no midline shift. We reviewed the results of the MRI today with the patient. He was seen by cardiology and has been started on antihypertensive medications as well. The patient underwent MRI of the brain which was reviewed. MRI reveals evidence of a acute right thalamic stroke. We reviewed the results today with the patient and his at bedside. He is planning to return to [place] where he will recuperate is that this is home town. The patient otherwise seems to notice some improvement with the left-sided weakness. He underwent carotid Doppler ultrasound results which came back negative for any evidence of carotid stenosis. His recent stroke as detected on MRI is very typical for hypertensive etiology. The patient's blood pressure continues to remain poorly controlled. We are waiting further recommendations from cardiology. Patient is very eager to go home as he would like to return to [place] where he is currently living. We recommend that he should make sure his blood pressure is well controlled before being discharged from the hospital in the next few days. We will continue close neurological follow-up with this patient during this admission. His overall prognosis at this time remains guarded. Objective - Vital Signs Vital signs: Vital Signs Temp 97.5 F L 04/13/17 08:00 Pulse 68 04/13/17 16:00 Resp 16 04/13/17 04:00 BP 188/96 04/13/17 16:00 Pulse Ox 95 04/13/17 16:00 Intake & Output 04/12/17 04/13/17 04/13/17 18:59 06:59 18:59 Intake Total 996 20 430 Balance 996 20 430 Weight 115 kg Intake: IV 20 10 0.9% NS FLUSH 10 ML 20 10 Intake, IV Titration 400 Amount Sodium Chloride 0.9% 1, 400 000 ml @ 100 mls/hr IV . Q10H [facility] Rx#:[id number] Oral 596 420 - Exam Physical examination: PHYSICAL EXAMINATION: Patient is resting comfortably in bed. VITAL SIGNS: Blood pressure is [162/81]. Heart rate is [63]. Respiration is [16] . Temperature is [97.5]. HEENT: Head is atraumatic, neck is supple, there were no carotid bruits. CHEST: Lungs are clear to auscultation and percussion. CARDIAC: S1, S2 normal rate and rhythm. There is no murmur. ABDOMEN: Soft and nontender. Bowel sounds are present. EXTREMITIES: There is no pedal edema. Peripheral pulses are present. Neurological examination: Patient's neurological examination is unchanged from yesterday. 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 He has been to scientologist is throughout the [facility]. Patient on Tuesday night developed sudden onset of left-sided weakness involving his arm and leg. 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 He was able to complete his sermon earlier today but then his convinced him to come to the emergency room for further evaluation. Patient was seen in the ER by Dr. Paiz and he was sent for computed tomography scan and CTA angiogram of the head and neck. CT of the brain was negative for acute stroke or hemorrhage. CTA was also negative for any evidence of vascular occlusion. Patient was not a candidate for TPA as his symptoms started yesterday evening at 10 PM. He was admitted to the hospital for a complete stroke evaluation. Neurological examination reveals evidence of left-sided weakness suggesting acute right MCA stroke. He also shows evidence of dysmetria on finger-nose testing using the left arm. We would also include in the differential diagnosis possibility of cerebellar stroke. The patient underwent MRI of the brain yesterday which was reviewed. MRI does reveal evidence of acute right thalamic stroke. This is most likely a hypertensive stroke. His blood pressures continue to remain elevated. We will await further recommendations from cardiology. He will require close monitoring of his blood pressure. His overall prognosis at this time remains guarded. The patient is resting comfortably despite his recent stroke. He is planning to return to [place] soon after he is discharged here and he will recuperate locally. We suggest he follow up with an it service continuity supervisor and neurologist there for further management of his stroke. Blood pressure does seem to be leveling off but still remains elevated. We will continue close neurological follow this patient during this admission. His overall prognosis at this time remains guarded. Patient is being considered for discharge home in the next 24-48 hours. His overall prognosis at this time remains guarded. We will continue close neurological follow-up for the patient during this admission.
[2017-04-14 05:09] VITALS: RESP 18
[2017-04-14] MEDS: CARVEDILOL 12.5 MG TAB PO SCH (07:03)
[2017-04-14] MEDS: PANTOPRAZOLE 40 MG TABLET PO SCH (07:04)
--- NOTE | 2017-04-14 08:12 | P.PN ---
Subjective Principal diagnosis: Hypertension/stroke This is a pleasant 66-year-old gentleman who is visiting here from [facility], has no past medical history however has not been seen by a physician in over 30 years. Likely has a history of untreated hypertension as he had his blood pressure checked at one point many years ago and it was quite high however he never saw sought medical attention. He presented to the emergency department after having recurrent episodes of left -sided weakness and numbness. Upon arrival to the emergency department, his blood pressure was elevated at 257/121. CT of the brain showed no acute intracranial abnormality and mild degenerative change. Chest x-ray showed mild cardiomegaly and correlate for COPD. Neurology has been consulted on this patient. Patient underwent carotid Doppler study and an MRI of the brain. Carotid Doppler showed intimal thickening in bilateral plaque formation with no significant hemodynamic stenosis. MRI of the brain showed area of acute ischemia measuring 1.2 cm within the right thalamus with no midline shift. Echocardiogram showed normal LV function. Cardiology was asked to see the patient in consultation due to hypertension. Patient's blood pressure spiked up to 215/100. He is currently on Norvasc 5 mg by mouth daily. We did increase the dose of Norvasc to 10 mg and we added Coreg on him. On follow-up with him today, he continues to be asymptomatic from the cardiovascular standpoint overview. The blood pressure is well-controlled. From the cardiovascular standpoint of view, the patient can be discharged home. Objective - Vital Signs Vital signs: Vital Signs Temp 97.5 F L 04/14/17 04:00 Pulse 71 04/14/17 04:00 Resp 18 04/14/17 04:00 BP 155/95 04/14/17 04:00 Pulse Ox 96 04/14/17 04:00 Intake & Output 04/13/17 04/14/17 04/14/17 18:59 06:59 18:59 Intake Total 430 250 Balance 430 250 Weight 110.9 kg Intake: IV 10 10 0.9% NS FLUSH 10 ML 10 10 Oral 420 240 Other: # Voids 1 - Constitutional General appearance: Present: no acute distress - Respiratory Respiratory: bilateral: CTA - Cardiovascular Rhythm: regular Heart sounds: normal: S1, S2 - Labs CBC & Chem 7: 04/12/17 05:52 04/12/17 05:52 Assessment and Plan Plan: This is a pleasant 66-year-old gentleman who presented to the hospital with stroke and was found to have uncontrolled hypertension. The blood pressure is well-controlled on the current medical regimen. From the cardiovascular standpoint of view, the patient can be discharged home.
[2017-04-14] MEDS: ATORVASTATIN 40 MG TAB PO SCH (09:26)
[2017-04-14] MEDS: HEPARIN SODIUM,PORCINE 5,000 UNIT/ML 1 ML VIAL SQ SCH (09:26)
[2017-04-14] MEDS: ASPIRIN 325 MG TAB PO SCH (09:27)
[2017-04-14] MEDS: amLODIPine 5 MG TAB PO SCH (09:27)
--- NOTE | 2017-04-14 10:41 | P.PN ---
Subjective Progress note being dictated for Dr. Gonzalez. 04/11/2017Interval history: This a 66-year-old gentleman admitted with acute left sided CVA, hypertensive urgency and multiple other medical issues. Evaluated by neurology with neuro workup in progress. Norvasc added to med regime yesterday, remains hypertensive, cardiology consulted with recommendations noted. Beta stephanie added to med regime. Echo ordered. MRI pending. CK 221, cholesterol 239, LDL 171. Denies chest pain, palpitations or increasing shortness of breath. 04/12/2017. Yesterday Norvasc dose increased with Coreg added to med regime. Remains hypertensive. Refusing to take IV antihypertensives and at times oral medications. On MRI reported acute right Thalamic stroke without midline shift. Carotid Doppler reporting no significant hemodynamic stenosis. Denies chest pain, palpitations or increasing shortness of breath. 04/13/17 hypertensive this morning, as patient has been declining some medications. Angry regarding statin added to medication regime, despite explanation of rationale, pharmacology. Threatening to leave AMA. Denies chest pain, palpitations or increasing shortness of breath. Objective - Vital Signs Vital signs: Vital Signs Temp 97.5 F L 04/13/17 08:00 Pulse 71 04/13/17 08:00 Resp 16 04/13/17 04:00 BP 205/94 04/13/17 08:00 Pulse Ox 96 04/13/17 08:00 Intake & Output 04/12/17 04/13/17 04/13/17 18:59 06:59 18:59 Intake Total 996 20 180 Balance 996 20 180 Weight 115 kg Intake: IV 20 0.9% NS FLUSH 10 ML 20 Intake, IV Titration 400 Amount Sodium Chloride 0.9% 1, 400 000 ml @ 100 mls/hr IV . Q10H [facility] Rx#:[id number] Oral 596 180 - Exam PHYSICAL EXAM: VITAL SIGNS: As above GENERAL: Sitting up in chair, no acute distress HEENT: Conjunctivae normal. eyes normal. Oral mucosa moist NECK: No JVD. No thyroid enlargement. No LNs CARDIOVASCULAR: S1, S2 muffled. No murmur RESPIRATION: Breath sounds diminished in the bases. No rhonchi or crackles. ABDOMEN: Soft, nontender . No guarding. no masses palpable. Bowel sounds heard. LEGS: No edema. no swelling PSYCHIATRY: Alert and oriented -3, mood and affect normal. NERVOUS SYSTEM: Cranial N 2-12 grossly normal. Moves all 4 limbs. Unchanged ; Diffuse weakness and significant incoordination of left upper and lower extremities, No focal deficits. No sensory deficit. Skin: no ulcer no rash Joints: No active swelling. No inflammation. - Labs CBC & Chem 7: 04/12/17 05:52 04/12/17 05:52 Assessment and Plan Plan: 1. Acute left-sided stroke, rule out cerebellar or posterior circulation stroke. MRI reporting acute right thalamus stroke. 2. [ Hypertension and hypertensive urgency]. 3. [ Remote history of nicotine dependence]. 4. [ Increased CK]. 5. Hypercholesterolemia, Plan: Continue on current medication regime , aspirin, Norvasc, beta stephanie , monitoring and symptomatic treatment. close monitoring of blood pressure, antihypertensives as per cardiology. Follow closely with neurology and cardiology. Prognosis guarded. Discharge planning in progress for tomorrow. The impression and plan of care has been dictated as directed. : I performed a H&P examination of this patient and discussed the same with the dictator. I agree with the dictator's note. Any additional findings/opinions/ etc. will be noted.
[2017-04-14 12:15] VITALS: BP 154/84; PULSE 62; TEMP 97.8
--- NOTE | 2017-04-14 12:48 | P.PN ---
Subjective This patient is a 66-year-old male who was seen on neurology consultation for evaluation of left-sided weakness and possible acute TIA versus stroke. Patient 's neurological examination yesterday did reveal evidence of left hemiparesis as well as left-sided dysmetria. Patient was sent for MRI of the brain today which was reviewed. MRI reveals evidence of an acute infarct in the right thalamus measuring 1.2 cm. There was no midline shift. We reviewed the results of the MRI today with the patient. He was seen by cardiology and has been started on antihypertensive medications as well. The patient underwent MRI of the brain which was reviewed. MRI reveals evidence of a acute right thalamic stroke. We reviewed the results yesterday with the patient and his at bedside. He is planning to return to [place] where he will recuperate is that this is home town. The patient otherwise seems to notice some improvement with minimal left-sided weakness. He underwent carotid Doppler ultrasound results which came back negative for any evidence of carotid stenosis. His recent stroke as detected on MRI is very typical for hypertensive etiology. The patient's blood pressure continues to remain poorly controlled. We are waiting further recommendations from cardiology. Patient is very eager to go home as he would like to return to [place] where he is currently living. We recommend that he should make sure his blood pressure is well controlled before being discharged from the hospital in the next few days. This morning his blood pressure is doing much better and is under good control. His dose of Norvasc was increased to 10 mg daily and he is also on Coreg 25 mg BID. We have instructed the patient to follow-up with an cinema operator when he returns to [facility]. He states his has already making arrangements for this. The patient has been cleared by Cardiology for discharge home today. His neurologic exam today is non-focal with no motor deficit. The patient should continue on aspirin 325 my daily for secondary stroke prevention. The patient is neurologically stabe for discharge home this morning. We will continue close neurological follow-up with this patient during this admission. His overall prognosis at this time remains guarded. Objective - Vital Signs Vital signs: Vital Signs Temp 97.8 F 04/14/17 12:04 Pulse 62 04/14/17 12:04 Resp 18 04/14/17 12:04 BP 154/84 04/14/17 12:04 Pulse Ox 95 04/14/17 12:04 Intake & Output 04/13/17 04/14/17 04/14/17 18:59 06:59 18:59 Intake Total 430 250 180 Output Total 460 Balance 430 -210 180 Weight 110.9 kg Intake: IV 10 10 0.9% NS FLUSH 10 ML 10 10 Oral 420 240 180 Output: Urine 460 Other: # Voids 1 - Exam Physical examination: PHYSICAL EXAMINATION: Patient is resting comfortably in bed. VITAL SIGNS: Blood pressure is [154/84]. Heart rate is [62]. Respiration is [18] . Temperature is [97.8]. HEENT: Head is atraumatic, neck is supple, there were no carotid bruits. CHEST: Lungs are clear to auscultation and percussion. CARDIAC: S1, S2 normal rate and rhythm. There is no murmur. ABDOMEN: Soft and nontender. Bowel sounds are present. EXTREMITIES: There is no pedal edema. Peripheral pulses are present. Neurological examination: Patient's neurological examination is unchanged from yesterday. 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 Patient on Tuesday night last week developed sudden onset of left-sided weakness involving his arm and leg. 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 He was able to complete his sermon earlier today but then his convinced him to come to the emergency room for further evaluation. Patient was seen in the ER by Dr. Paiz and he was sent for computed tomography scan brain and CTA angiogram of the head and neck. CT of the brain was negative for acute stroke or hemorrhage. CTA was also negative for any evidence of vascular occlusion. Patient was not a candidate for TPA as his symptoms started the evening before at 10 PM. He was outside of the 4 hour therapeuric window for use of tPA. He was admitted to the hospital for a complete stroke evaluation. Neurological examination reveals evidence of left- sided weakness suggesting acute right MCA stroke. He also shows evidence of dysmetria on finger-nose testing using the left arm. We would also include in the differential diagnosis possibility of cerebellar stroke. The patient underwent MRI of the brain which was reviewed. MRI does reveal evidence of acute right thalamic stroke. This is most likely a hypertensive stroke. His blood pressures continue to remain elevated. We will await further recommendations from cardiology. Cardiology has made some adjustments in his blood pressure medications. He will require close monitoring of his blood pressure. The patient wishes to hold on starting Lipitor at this time. He will discuss later with his physician in [facility] upon return home. His overall prognosis at this time remains guarded. The patient is resting comfortably despite his recent stroke. He is planning to return to [place] soon after he is discharged here and he will recuperate locally. We suggest he follow up with an cinema operator and neurologist there for further management of his stroke. Blood pressure does seem to be leveling off but still remains elevated. His blood pressure today is 154/84 and this is very good BP control for him. We will continue close neurological follow this patient during this admission. His overall prognosis at this time remains guarded. The patient is being considered for discharge home today. He is neurologically stable for discharge home today and should follow-up with his physician in [facility]. Patient is neurologically stable at the time of discharge.
--- NOTE | 2017-04-14 14:48 | P.DS ---
Providers Date of admission: 04/10/17 14:39 Attending physician: Ronda Carr Consults: 04/10/17 14:40 Consult Physician Urgent Consulting Provider: Lori Glover Consult Reason/Comments: CVA Do you want consulting provider notified?: Yes 04/11/17 13:02 Consult Physician Routine Consulting Provider: Ace Mcnulty Consult Reason/Comments: HTN, Do you want consulting provider notified?: Yes Primary care physician: Stated None Hospital Course: This 66-year-old gentleman was admitted with left-sided weakness and incoordination. Neurology saw the patient. Neurovascular workup was also done. MRI showed right thalamic infarct in the posterior circulation stroke. Patient was treated with the antiplatelet agents and as well as other medications. Patient also has hypertensive urgency. Treated in conjunction with cardiology. Patient improved significantly. Patient is discharged in a stable condition with guarded prognosis. I've discussed diagnostic and prognostic implications with the family on multiple patient at length. Patient and family understands and agrees. Patient is keen on going home. I recommended outpatient follow-up with neurology and primary physician in the outpatient setting. On exam vitals stable cardio S1 and S2 normal. Respiratory system clear to oscillation. Abdomen soft nontender. Neuro left sided incoordination. Minimal gait dysfunction. Minimal weakness on left-sided left lower limb present. Final diagnosis 1. Acute left-sided stroke crossbite right thalamic stroke. 2. Hypertension and hypertensive urgency. 3. Remote history and nicotine dependence. 4. Hyperlipidemia. 5. Increased CK. Patient Condition at Discharge: Stable Plan - Discharge Summary New Discharge Prescriptions: New ALPRAZolam [Xanax] 0.25 mg PO TID PRN #20 tab PRN Reason: Anxiety amLODIPine [Norvasc] 5 mg PO BID #60 tab Aspirin EC [Ecotrin Low Dose] 81 mg PO DAILY #30 tablet. Atorvastatin [Lipitor] 40 mg PO DAILY #30 tab Carvedilol [Coreg*] 25 mg PO BID-W/MEALS #120 tab Pantoprazole [Protonix] 40 mg PO AC-BRKFST #30 tab Continue Aspirin EC [Ecotrin] 650 mg PO ONCE PRN PRN Reason: Pain Discharge Medication List Aspirin EC [Ecotrin] 650 mg PO ONCE PRN 04/10/17 [History] ALPRAZolam [Xanax] 0.25 mg PO TID PRN #20 tab 04/14/17 [Rx] Aspirin EC [Ecotrin Low Dose] 81 mg PO DAILY #30 tablet. 04/14/17 [Rx] Atorvastatin [Lipitor] 40 mg PO DAILY #30 tab 04/14/17 [Rx] Carvedilol [Coreg*] 25 mg PO BID-W/MEALS #120 tab 04/14/17 [Rx] Pantoprazole [Protonix] 40 mg PO AC-BRKFST #30 tab 04/14/17 [Rx] amLODIPine [Norvasc] 5 mg PO BID #60 tab 04/14/17 [Rx] Follow up Appointment(s)/Referral(s): PCPDr. Pt's own ( [place]) [Other] - 1 Week Neurologist, Pt's own ([place]) [Other] - 2 Weeks Ck Calvin MD [REFERRING] - 3 Days Ralph Glover MD [STAFF PHYSICIAN] - 2 Weeks Ambulatory/Diagnostic Orders: Comprehensive Metabolic Panel [LAB.AMB] Time Frame: 3 Days, Location: Determined By Patient Patient Instructions/Handouts: Right Hemispheric Stroke (DC), Self Care Measures After a Stroke (DC), Effects of a Stroke (DC) Activity/Diet/Wound Care/Special Instructions: Pending neurology final DC recommendations and clearance. prefers appt in afternoon. Diet: Cardiac, low cholesterol Activity: Limited until follow-up
== END 2017-04-14 15:01 | disposition home or self-care (01) | DRG 65 ==
LOC: EC 12:52 → 6SEL 14:39
PROVIDERS: ADMIT Internal Medicine; ATTEND Internal Medicine
DX: I63.9 Cerebral infarction, unspecified (principal); G81.94 Hemiplegia, unspecified affecting left nondominant side; I10 Essential (primary) hypertension; R29.810 Facial weakness; E78.00 Pure hypercholesterolemia, unspecified; E78.5 Hyperlipidemia, unspecified; I16.0 Hypertensive urgency; I44.0 Atrioventricular block, first degree; Z79.82 Long term (current) use of aspirin; Z87.891 Personal history of nicotine dependence
CPT/HCPCS: 36415; 70450; 70551; 71020; 80048; 80053; 80061; 81003; 82550; 82553; 84443; 84484; 85025; 85610; 85730; 93005; 93306; 93880; 94760; 96361; 96374; 96375; 99291